=== PATIENT | female | born 1980 | race Caucasian/White ===

== ENCOUNTER 2017-04-27 08:11 | Inpatient (IN) | payer OTHER ==
[~2017-04-27] VITALS: Ht 172.7 cm; Wt 87.0 kg
[2017-04-27] VITALS (28 sets, daily range): BP systolic 90–123; BP diastolic 49–78; PULSE 77–122; RESP 16–18; TEMP 97.6–97.8
[~2017-04-27 08:11] MED LIST: IBUP-238 PO; PREN0.01 PO; TUMS500C PO
[2017-04-27] MEDS ORDERED: LACTATED RINGER'S 1000 ML INJ 1,000 ML IV PRN (09:03)
[2017-04-27] MEDS ORDERED: LACTATED RINGER'S 1000 ML INJ 1,000 ML IV SCH (09:03)
[2017-04-27] MEDS ORDERED: fentaNYL 2MCG-BUPIV 0.125% INJ 100 ML ONE (09:05)
--- NOTE | 2017-04-27 09:14 | HHI.HP ---
HPI Chief Complaint term labor induction, multip, favorable Magana score (9) Date Seen: Apr 27, 2017 Time Seen: 09:00 Travel History International Travel<30 Days: No Contact w/Intl Traveler<30Days: No Known Affected Area: No History of Present Illness HPI 37 yo with tong female IUP at 39w1d admit for term labor induction , was already 4cm dilated in office when seen yesterday. complicated by AMA status, varicella non-immune. Pt did have negative genetic testing and NT scan was wnl. Today c/o irregular contractions, denies LOF or VB, endorses good FM. Pain 2/10 pressure in pelvis. Weeks Gestation: 39 Para: 3 : 4 Last Menstrual Period: Oct 07, 2016 Miscarriage: 0 : 0 History Past Medical History Narrative Medical denies significant Obstetric History Obstetric History G1 = 07/2005 FT @ 38 wks 7#7oz male G2 = 11/2006 FT @ 38 wks 8#3oz male G3 = 02/2010 FT @ 39 wks 7#12oz male G4 = current 39 wk female Past Surgical History Narrative Surgical tonsillectomy Family History Family History: Negative Social History Alcohol Use: No Tobacco Use: No Substance Abuse: No Allergies-Medications (Allergen,Severity, Reaction): Coded Allergies: No Known Allergies (Verified , 04/27/17) Home Meds Reported Medications Multivit/Min/Fol Ac/Iron/Pren ( Vit ( Plus)) 27 Mg Iron-1 Mg Tab , 1 TAB PO DAILY 02/13/10 Discontinued Reported Medications Ibuprofen (Motrin) 800 Mg Tab, 800 MG PO QID, #30 02/15/10 Calcium Carbonate (Tums) 500 Mg Chew, 500 MG PO DIRECTED 02/13/10 Review of Systems General / Constitutional: Weight Gain, No: Fever, Chills, Other Eyes: No: Diploplia, Blurred Vision, Visual changes, Pain, Photophobia HENT: No: Headaches, Vertigo, Lightheadedness Cardiovascular: No: Irregular Rhythm, Chest Pain or Discomfort, Palpitations, Tachycardia, Syncope, Varicosities, Edema, Cyanosis Respiratory: No: Cough, Short of Breath, Other Gastrointestinal: No: Nausea, Vomiting, Diarrhea Genitourinary: Pelvic Pain (pressure), No: Decreased Urinary Output, Oliguria Musculoskeletal: No: Limited ROM, Weakness, Cramping, Edema, Pain Skin: No Rash, No Itching, No Dryness, No Lumps, No Change in Pigmentation, No Change in Nails, No Alopecia, No Lesions Neurologic: No: Weakness, Dizziness, Syncope, Focal Abnormalities, Coordination Problem, Headache, Slurred Speech, Seizures Psychiatric: No: Depression, Suicidal Ideations, Homicidal Ideation Endocrine: No: Heat Intolerance, Cold Intolerance, Polydipsia, Polyuria, Other Physical Exam Narrative GENERAL: Well-nourished, well-developed patient. SKIN: Warm and dry. HEAD: Normocephalic and atraumatic. EYES: No scleral icterus. No injection or drainage. ENT: No nasal drainage noted. Mucous membranes pink. Airway patent. NECK: Supple, trachea midline. No JVD. CARDIOVASCULAR: Regular rate and rhythm without murmurs, gallops, or rubs. RESPIRATORY: Breath sounds equal bilaterally. No accessory muscle use. BREASTS: deferred. ABDOMEN/GI: Abdomen soft, non-tender, bowel sounds present, no rebound, no guarding Gravid to [39] weeks size Fundal Height: [39] GENITOURINARY: External Genitalia: intact and normal in appearance BUS glands: [wnl] Cervix: [mid] Dilatation: [4-5] Effacement: [50] Station: [-2] Presentation: [vtx] Membranes: AROM'd clear this check Uterine Contractions: [irregular] FHT's: Category: [I] Baseline: [130s] Reactive: [y] Variability: [y] Decels: [y] EXTREMITIES: No cyanosis or edema. BACK: Nontender without obvious deformity. No CVA tenderness. NEUROLOGICAL: Awake and alert. Motor and sensory grossly within normal limits. Five out of 5 muscle strength in all muscle groups. Normal speech. Caprini VTE Risk Assessment Caprini VTE Risk Assessment: No/Low Risk (score <= 1) VTE Pharm Contraindication: High risk for bleeding Caprini Risk Assessment Model Point Value = 1 Point Value = 2 Point Value = 3 Point Value = 5 Age 41-60 Minor surgery BMI > 25 kg/m2 Swollen legs Varicose veins or History of unexplained or recurrent spontaneous Oral contraceptives or hormone replacement Sepsis (< 1 month) Serious lung disease, including pneumonia (< 1 month) Abnormal pulmonary function Acute myocardial infarction Congestive heart failure (< 1 month) History of inflammatory bowel disease Medical patient at bed rest Age 61-74 Arthroscopic surgery Major open surgery (> 45 min) Laparoscopic surgery (> 45 min) Malignancy Confined to bed (> 72 hours) Immobilizing plaster cast Central venous access Age >= 75 History of VTE Family history of VTE Factor V Leiden Prothrombin [id number] Lupus anticoagulant Anticardiolipin antibodies Elevated serum homocysteine Heparin-induced thrombocytopenia Other congenital or acquired thrombophilia Stroke (< 1 month) Elective arthroplasty Hip, pelvis, or leg fracture Acute spinal cord injury (< 1 month) Prophylaxis Regimen Total Risk Factor Score Risk Level Prophylaxis Regimen 0-1 Low Early ambulation 2 Moderate Order ONE of the following: *Sequential Compression Device (SCD) *Heparin 5000 units SQ BID 3-4 Higher Order ONE of the following medications: *Heparin 5000 units SQ TID *Enoxaparin/Lovenox 40 mg SQ daily (WT < 150 kg, CrCl > 30 mL/min) *Enoxaparin/Lovenox 30 mg SQ daily (WT < 150 kg, CrCl > 10-29 mL/min) *Enoxaparin/Lovenox 30 mg SQ BID (WT < 150 kg, CrCl > 30 mL/min) AND/OR *Sequential Compression Device (SCD) 5 or more Highest Order ONE of the following medications: *Heparin 5000 units SQ TID (Preferred with Epidurals) *Enoxaparin/Lovenox 40 mg SQ daily (WT < 150 kg, CrCl > 30 mL/min) *Enoxaparin/Lovenox 30 mg SQ daily (WT < 150 kg, CrCl > 10-29 mL/min) *Enoxaparin/Lovenox 30 mg SQ BID (WT < 150 kg, CrCl > 30 mL/min) AND *Sequential Compression Device (SCD) Data Data Vital Signs Reviewed: Yes Orders Orders Admit To Inpatient (04/27/17 ) Code Status (04/27/17 09:03) Vital Signs (Adult) .Per protocol (04/27/17 09:03) Activity Oob Ad Mayda (04/27/17 09:03) Heart (04/27/17 09:03) Amnioinfusion (04/27/17 09:03) Urinary Catheter Management .ONCE (04/27/17 09:03) Diet Liquid (04/27/17 Breakfast) Lactated Ringer's 1000 Ml Inj (Lr 1000 M (04/27/17 09:03) Lactated Ringer's 1000 Ml Inj (Lr 1000 M (04/27/17 09:03) Sodium Chlorid 0.9% 500 Ml Inj (Ns 500 M (04/27/17 09:15) Sodium Chlor 0.9% 1000 Ml Inj (Ns 1000 M (04/27/17 09:23) Lidocaine 1% Inj (50 Ml) (Xylocaine 1% I (04/27/17 09:15) Citric Acid-Sodium Citrate Liq (Bicitra (04/27/17 09:15) Ondansetron Inj (Zofran Inj) (04/27/17 09:15) Fentanyl Inj (Fentanyl Inj) (04/27/17 09:15) Fentanyl Inj (Fentanyl Inj) (04/27/17 09:15) Complete Blood Count With Diff (04/27/17 09:03) Hold Clot (04/27/17 09:03) Abo/Rh Blood Type (04/27/17 09:03) Urinalysis - C+S If Indicated (04/27/17 09:03) Resp Oxygen Non Rebreathe Mask (04/27/17 ) ^ Epidural / Intrathecal Infus (04/27/17 09:03) Oxytocin 30 Units-500ml Premix (Pitocin (04/27/17 09:15) Lidocaine 1% Inj (50 Ml) (Xylocaine 1% I (04/27/17 09:15) Light Mineral Oil (Muri-Lube Oil) (04/27/17 09:15) Inpatient Certification (04/27/17 ) Specimen To Be Collected PRN (04/27/17 09:03) Fentanyl 2mcg-Bupiv 0.125% Inj (Fentanyl (04/27/17 09:05) ^ Non Stress Test (04/27/17 09:06) Response To Medication .Post New Med Administration, Reaction (04/27/17 09:06) Group B Strep: Negative Assessment/Plan Problem List: (1) Term ICD Codes: Z34.80 - Encounter for supervision of other normal , unspecified trimester (2) Labor and delivery indication for care or intervention ICD Codes: O75.9 - Complication of labor and delivery, unspecified Assessment and Plan 37 yo with tong female IUP at 39w1d by LMP c/w 10w5d sonogram, admit for labor induction at term due to favorable Magana score 1) IOL: AROM'd on admission, will augment with pitocin as needed, orders placed , pt desires epidural 2) GBS neg: aware 3) Rh negative: pt is s/p Rhogam at 28 wks, for PP eval 4) AMA: negative testing (cfDNA, msAFP) and normal NT, normal anatomy scan 5) UDF: for PP interval tubal 6) varicella non-immune: for PP vaccine 7) status: vertex, female, EFW 8#, Cat I tracing currently Discharge Planning routine for 2 d PP Yasmine Gusman MD Apr 27, 2017 09:14
[2017-04-27] MEDS ORDERED: SODIUM CHLORID 0.9% 500 ML INJ 500 ML IV PRN (09:15)
[2017-04-27] MEDS ORDERED: LIDOCAINE HCL 1% 50 ML VIAL INFIL PRN (09:15)
[2017-04-27] MEDS ORDERED: LIDOCAINE HCL 1% 50 ML VIAL I-DERMAL PRN (09:15)
[2017-04-27] MEDS ORDERED: ONDANSETRON HCL 4 MG/2 ML VIAL IV PUSH PRN (09:15)
[2017-04-27] MEDS ORDERED: CITRIC ACID-SODIUM CITRATE LIQ 30 ML UDC PO SCH (09:15)
[2017-04-27] MEDS ORDERED: MINERAL OIL 10 ML VIAL TOPICAL PRN (09:15)
[2017-04-27] MEDS ORDERED: SODIUM CHLOR 0.9% 1000 ML INJ 1,000 ML IV PRN (09:23)
[2017-04-27 09:29] LABS: AUTOMATED NEUTROPHIL # 7.1 TH/MM3 (1.8-7.7); BASOPHIL % 0.5 % (0.0-2.0); EOSINOPHIL # 0.1 TH/MM3 (0-0.4); EOSINOPHIL % 0.7 % (0.0-4.0); HEMATOCRIT 36.7 % (35.0-46.0); HEMO FLAGS DIFF FINAL; LYMPH % 19.9 % (9.0-44.0); MEAN CELL VOLUME 87.2 FL (80.0-100.0); MEAN CORPUSCULAR HEMOGLOBIN 29.9 PG (27.0-34.0); MEAN CORPUSCULAR HGB CONC 34.3 % (32.0-36.0); MONO % 9.1 % (0.0-8.0); NEUT % 69.8 % (16.0-70.0); PLATELET COUNT 234 TH/MM3 (150-450); RED BLOOD COUNT 4.21 MIL/MM3 (4.00-5.30); WHITE BLOOD COUNT 10.2 TH/MM3 (4.0-11.0)
[2017-04-27 09:30] LABS: BACTERIA, URINE OCC /hpf; BLOOD, URINE TRACE (NEG); GLUCOSE,URINE NEG (NEG); KETONE, URINE NEG (NEG); NITRITE,URINE NEG (NEG); SQUAMOUS EPITHELIAL CELL URINE 1 /hpf (0-5); URINE COLOR YELLOW (YELLW/STRAW)
[2017-04-27 09:33] LABS: COMMENT (UR) CULT NOT INDICATED; CULTURE IF INDICATED CULT NOT INDICATED
[2017-04-27] MEDS ORDERED: ePHEDrine/NS 25 MG/5 ML SYR ONE (09:52)
[2017-04-27] MEDS ORDERED: OXYTOCIN 30 UNITS-500ML PREMIX 500 ML IV ONE (10:00)
[2017-04-27] MEDS ORDERED: OXYTOCIN 30 UNITS-500ML PREMIX 500 ML IV SCH ×2 (10:00→13:00)
--- NOTE | 2017-04-27 12:55 | PD.OB.DELI ---
Weeks gestation: 39 Gest age assessed date: Apr 27, 2017 Gest age assessed time: 08:57 Pt started active labor?: Yes Active labor start date: Apr 27, 2017 Active labor start time: 08:57 Medical induction of labor?: Yes Medical induction start date: Apr 27, 2017 Medical induction start time: 08:57 Artificial rupture of membrane: Yes Artificial ROM date: Apr 27, 2017 Artifical ROM time: 08:57 Anesthesia: Epidural Episiotomy: None Vaginal Delivery: Normal, Spontaneous Presentation: Occiput anterior, Compound (left hand) Nuchal Cord: Other (cord wrapped around R arm, reduced at delivery) Delayed cord clamping (45 sec): Yes : Female, Single Delivery date: Apr 27, 2017 Delivery time: 12:42 One Minute : 8 Five Minute : 9 Placenta: Spontaneous delivery Laceration: No lacerations Estimated blood loss: 100 mL Additional Information weight pending, mother & baby doing skin to skin & Yasmine Gusman MD Apr 27, 2017 12:55
--- NOTE | 2017-04-27 12:59 | HHI.DCPOC ---
Discharge Care Plan Diagnosis: (1) (spontaneous vaginal delivery) Your Health Problems Are: Vaginal delivery Report Symptoms to Your Doctor -Temperature above 100.5 degrees -Redness, of incision or excessive or foul smelling drainage -Unusual pain or calf pain -Increased vaginal bleeding -Painful or difficulty urinating -Feelings of extreme sadness or anxiety after 2 weeks Goals to Promote Your Health * To prevent worsening of your condition and complications * To maintain your health at the optimal level Directions to Meet Your Goals Take your medications as prescribed Follow your dietary instruction Follow activity as directed Ensure plenty of rest for recovery Drink fluids for hydration Keep your appointments as scheduled Take your immunizations and boosters as scheduled If your symptoms worsen call your PCP, if no PCP go to Urgent Care Center or Emergency Room Smoking is Dangerous to Your Health. Avoid second hand smoke Call the 24-hour crisis hotline for domestic abuse at Yasmine Gusman MD Apr 27, 2017 12:59
[2017-04-27] MEDS ORDERED: ONDANSETRON ODT 4 MG TAB PO PRN (13:00)
[2017-04-27] MEDS ORDERED: SODIUM CHLORIDE 0.9% FLUSH 10 ML FLUSH IV FLUSH SCH (13:00)
[2017-04-27] MEDS ORDERED: WITCH HAZEL 50%/GLYCERIN 12.5% 40 PAD JAR TOPICAL PRN (13:00)
[2017-04-27] MEDS ORDERED: ACETAMINOPHEN 325 MG TAB PO PRN (13:00)
[2017-04-27] MEDS ORDERED: SODIUM CHLORIDE 0.9% FLUSH 10 ML FLUSH IV FLUSH PRN (13:00)
[2017-04-27] MEDS ORDERED: ALUMINUM/MAGNESIUM/SIMETH 30 ML CUP PO PRN (13:00)
[2017-04-27] MEDS ORDERED: BENZOCAINE 20% TOPICAL SPRAY 60 ML CAN TOPICAL PRN (13:00)
[2017-04-27] MEDS ORDERED: ZOLPIDEM TARTRATE 5 MG TAB PO PRN (13:00)
[2017-04-27] MEDS ORDERED: DOCUSATE SODIUM 50 MG/SENNA 8.6 MG TAB PO PRN (13:00)
[2017-04-27] MEDS ORDERED: DO NOT ADMINISTER ANTICOAGULANTS PRN (13:30)
[2017-04-27] MEDS ORDERED: fentaNYL 2MCG-BUPIV 0.125% 100 ML EPIDURAL SCH (13:30)
[2017-04-27] MEDS ORDERED: NO SYSTEM NARCOTICS PRN (13:30)
[2017-04-27] MEDS ORDERED: ePHEDrine/NS 25 MG/5 ML SYR IV PUSH PRN (13:30)
[2017-04-27] MEDS ORDERED: MEASLES, MUMPS, RUBELLA VACCINE 0.5 ML VIAL SQ ONE (16:00)
[2017-04-27] MEDS ORDERED: DIPHTH/TETANUS/ACEL PERTUSSIS (BOOSTER) 0.5 ML VIAL/PFS IM ONE (16:00)
[2017-04-27] MEDS: IBUPROFEN 600 MG TAB PO PRN (17:53)
[2017-04-28] MEDS: IBUPROFEN 600 MG TAB PO PRN ×2 (00:55→10:10)
[2017-04-28] MEDS ORDERED: IBUP-232 PO (06:38)
--- NOTE | 2017-04-28 06:46 | HHI.OB ---
Subjective Post Day: 1 Remarks s/p uncomplicated FT of female Objective Vitals/I&O Vital Signs Date Time Temp Pulse Resp B/P (MAP) Pulse Ox O2 Delivery O2 Flow Rate FiO2 04/27/17 19:30 85 114/63 (80) 04/27/17 19:30 97.8 18 04/27/17 14:15 95 17 121/73 (89) 04/27/17 14:01 77 114/60 (78) 04/27/17 14:00 18 04/27/17 13:45 97.6 04/27/17 13:45 78 102/71 (81) 04/27/17 13:31 82 101/64 (76) 04/27/17 13:30 17 04/27/17 13:15 92 113/57 (75) 04/27/17 13:15 16 04/27/17 13:01 79 99/67 (78) 04/27/17 13:00 17 04/27/17 12:58 91 115/65 (82) 04/27/17 12:30 103 107/56 (73) 04/27/17 12:00 86 114/61 (78) 04/27/17 11:30 82 107/69 (82) 04/27/17 11:00 78 106/64 (78) 04/27/17 10:49 77 98/61 (73) 04/27/17 10:45 77 90/49 (63) 04/27/17 10:40 93 04/27/17 10:35 84 04/27/17 10:30 85 04/27/17 10:20 84 04/27/17 10:15 110/72 (85) 04/27/17 10:15 84 04/27/17 10:10 110/68 (82) 04/27/17 10:10 94 04/27/17 10:05 95 116/69 (85) 04/27/17 10:05 92 04/27/17 10:00 89 04/27/17 10:00 95 103/62 (76) 04/27/17 09:56 122 112/67 (82) 04/27/17 09:50 118/78 (91) 04/27/17 09:50 106 04/27/17 09:49 103 123/77 (92) Objective Remarks GENERAL: Well-nourished, well-developed patient. CARDIOVASCULAR: Regular rate and rhythm without murmurs, gallops, or rubs. RESPIRATORY: Breath sounds equal bilaterally. No accessory muscle use. ABDOMEN/GI: Abdomen soft, non-tender. Fundus: Firm, non-tender at umbilicus. GENITOURINARY: Light bleeding. EXTREMITIES: No cyanosis or edema, non-tender, without signs of DVT. Medications and IVs Current Medications Medications (Trade) Dose Ordered Sig/Raghu Route Start Time Stop Time Status Last Admin (NS Flush) 2 ml BID IV FLUSH 04/27/17 13:00 (NS Flush) 2 ml UNSCH PRN IV FLUSH 04/27/17 13:00 (Tylenol) 650 mg Q4H PRN PO 04/27/17 13:00 (Motrin) 600 mg Q6H PRN PO 04/27/17 13:00 04/28/17 00:55 (Americaine 20% Top Spr) 1 spray Q4H PRN TOPICAL 04/27/17 13:00 04/27/17 17:53 (Tucks Pads) 1 applic QID PRN TOPICAL 04/27/17 13:00 04/27/17 17:53 (Lana-Colace) 2 tab Q12H PRN PO 04/27/17 13:00 04/27/17 17:53 (Ambien) 5 mg HS PRN PO 04/27/17 13:00 (Mag-Al Plus Susp Liq) 15 ml Q8H PRN PO 04/27/17 13:00 (Zofran Odt) 4 mg Q6H PRN PO 04/27/17 13:00 Miscellaneous Information No systemic narcotics to be given except... UNSCH PRN .XX 04/27/17 13:30 04/28/17 13:29 Miscellaneous Information DO NOT ADMINISTER ANY ANTICOAGUL... UNSCH PRN .XX 04/27/17 13:30 04/28/17 13:29 Fentanyl/ Bupivacaine HCl 100 ml @ 0 mls/hr TITRATE EPIDURAL 04/27/17 13:30 (ePHEDrine/NS 25 MG/5 ML SYR) 10 mg UNSCH PRN IV PUSH 04/27/17 13:30 04/28/17 13:29 (Flu (Quadrivalent) Vaccine Inj) 0.5 ml ONCE ONCE IM 04/28/17 10:00 04/28/17 10:01 Assessment/Plan Problem List: (1) (spontaneous vaginal delivery) ICD Codes: O80 - Encounter for full-term uncomplicated delivery Status: Acute (2) Term ICD Codes: Z34.80 - Encounter for supervision of other normal , unspecified trimester Status: Acute (3) Labor and delivery indication for care or intervention ICD Codes: O75.9 - Complication of labor and delivery, unspecified Status: Acute Assessment and Plan 37 yo s/p of healthy female PPD#1 routine supportive care pt & doing well, office f/u 2 wks; pt desires interval tubal Discharge Planning routine for 2 d PP Yasmine Gusman MD Apr 28, 2017 06:46
[2017-04-28] MEDS ORDERED: INFLUENZA VIRUS VACCINE (QUADRIVALENT) 0.5 ML SYR IM ONE (10:00)
[2017-04-28 11:46] VITALS: BP 106/62; PULSE 92; RESP 17; TEMP 98.2
== END 2017-04-28 15:52 | disposition home or self-care (01) | DRG 775 ==
LOC: H2EA 08:11 → H1EA 16:50
PROVIDERS: ADMIT Obstetrics & Gynecology; ATTEND Obstetrics & Gynecology
PROC: 10E0XZZ Delivery of Products of Conception, External Approach (ICD-10-PCS; principal; 2017-04-27)
DX: O80 Encounter for full-term uncomplicated delivery (principal); Z37.0 Single live birth; Z3A.39 39 weeks gestation of pregnancy
CPT/HCPCS: 59025; 81001; 85025; 85461; 86850; 86900; 86901; 90384; J2590; J2790; J7120